=== PATIENT | female | born 1975 | race Caucasian/White ===

== ENCOUNTER 2019-07-07 19:20 | Observation (INO) | payer OTHER ==
[2019-07-07] MEDS ORDERED: SODIUM CHLORIDE 0.9% 1,000 ML IV STA ×2 (19:43)
[2019-07-07] MEDS ORDERED: diphenhydrAMINE 50 MG/ML 1 ML VIAL IVP STA ×2 (19:43→21:45)
[2019-07-07] MEDS ORDERED: METOCLOPRAMIDE 5 MG/ML 2 ML VIAL IVP STA (19:43)
[2019-07-07] MEDS ORDERED: CAFFEINE-SODIUM BENZOATE 500 MG in SODIUM CHLORIDE 0.9% 1,000 ML IVPB ONE (20:00)
--- NOTE | 2019-07-07 20:28 | ED ---
Headache HPI - General Source: RN notes reviewed, old records reviewed Mode of arrival: ambulatory Limitations: no limitations <Doris Drake - Last Filed: 07/07/19 20:47> <Addi Amado - Last Filed: 07/07/19 22:47> - General Chief Complaint: Headache Stated Complaint: Migraine Time Seen by Provider: 07/07/19 19:28 - History of Present Illness Initial Comments: Patient 44 year-old female presents emergency pharmacy and treatment of headache, nausea vomiting, and photophobia 3 days. She states it is a gradual headache. She reports the headache seems to worse with positions and sitting up breath on laying down. Patient states that she's had history of migraines but none related to position in the past. Patient reports that she's had a cyst on her brain that was removed. Patient states that she's had no fevers or chills. Denies any significant chest pain or back pain or shortness of breath. 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 She's been taking Excedrin Migraine. (Doris Drake) - Related Data Allergies Allergy/AdvReac Type Severity Reaction Status Date / Time ciprofloxacin [From Cipro] Allergy Swelling Verified 07/07/19 19:25 Review of Systems ROS Other: All systems not noted in ROS Statement are negative. <Doris Drake - Last Filed: 07/07/19 20:47> ROS Other: All systems not noted in ROS Statement are negative. <Addi Amado - Last Filed: 07/07/19 22:47> ROS Statement: Those systems with pertinent positive or pertinent negative responses have been documented in the HPI. Past Medical History Additional Past Medical History / Comment(s): migraines History of Any Multi-Drug Resistant Organisms: None Reported Past Surgical History: Adenoidectomy, Section, Joint Replacement, Tonsillectomy Additional Past Surgical History / Comment(s): lt knee, brain cyst removed Past Psychological History: Anxiety, Depression Smoking Status: Never smoker Past Alcohol Use History: Occasional Past Drug Use History: Marijuana <Doris Drake - Last Filed: 07/07/19 20:47> General Exam Limitations: no limitations General appearance: alert, in no apparent distress Head exam: Present: atraumatic, normocephalic, normal inspection Eye exam: Present: normal appearance, PERRL, EOMI. Absent: scleral icterus, conjunctival injection, periorbital swelling ENT exam: Present: normal exam, mucous membranes moist Neck exam: Present: normal inspection. Absent: tenderness, meningismus, lymphadenopathy Respiratory exam: Present: normal lung sounds bilaterally. Absent: respiratory distress, wheezes, rales, rhonchi, stridor Cardiovascular Exam: Present: regular rate, normal rhythm, normal heart sounds. Absent: systolic murmur, diastolic murmur, rubs, gallop, clicks GI/Abdominal exam: Present: soft, normal bowel sounds. Absent: distended, tenderness, guarding, rebound, rigid Extremities exam: Present: normal inspection, full ROM, normal capillary refill. Absent: tenderness, pedal edema, joint swelling, calf tenderness Back exam: Present: normal inspection Neurological exam: Present: alert, oriented X3, CN II-XII intact Expanded Patient oriented to: Present: person, place, time Speech: Present: fluid speech Cranial nerves: EOM's Intact: Normal Cerebellar function: Finger to Nose: Normal Upper motor neuron: Pronator Drift: Normal Sensory exam: Upper Extremity Light Touch: Normal, Lower Extremity Light Touch: Normal Psychiatric exam: Present: normal affect, normal mood Skin exam: Present: warm <Doris Drake - Last Filed: 07/07/19 20:47> - General Exam Comments Initial Comments: 44-year-old female. Alert and oriented. She does appear in moderate discomfort, and has had some episodes of vomiting. (Doris Drake) Course <Doris Drake - Last Filed: 07/07/19 20:47> <Addi Amado - Last Filed: 07/07/19 22:47> Vital Signs 07/07/19 07/07/19 19:21 22:12 Temperature 98.2 F Pulse Rate 91 70 Respiratory 20 16 Rate Blood Pressure 147/94 145/90 O2 Sat by Pulse 97 Oximetry - Reevaluation(s) Reevaluation #1: 07/07/19 20:36 Patient case discussed with Dr. Amado will take care of the Patient pending CT at this time. (Doris Drake) 07/07/19 21:59 Patient reevaluated and resting comfortably in bed. Patient updated on results. Patient states only mild improvement of symptoms. Patient states she does feel somewhat anxious and nauseated. Further medication has been ordered and patient will be reevaluated. (Addi Amado) Medical Decision Making - Lab Data Result diagrams: 07/07/19 20:30 07/07/19 20:30 - Radiology Data Radiology results: image reviewed (Computed tomography scan of the brain shows no acute abnormality. Post surgical changes.) <Addi Amado - Last Filed: 07/07/19 22:47> - Medical Decision Making Patient again reevaluated. Patient states nausea has improved. Patient states discomfort is only mildly improved. Case discussed with Dr. Del Valle, who will admit for hospital call. (Addi Amado) - Lab Data Lab Results 07/07/19 07/07/19 07/07/19 Range/Units 20:30 20:30 20:30 WBC 11.8 H (3.8-10.6) k/uL RBC 4.68 (3.80-5.40) m/uL Hgb 13.5 (11.4-16.0) gm/dL Hct 41.8 (34.0-46.0) % MCV 89.2 (80.0-100.0) fL MCH 28.9 (25.0-35.0) pg MCHC 32.4 (31.0-37.0) g/dL RDW 13.4 (11.5-15.5) % Plt Count 316 (150-450) k/uL Neutrophils % 55 % Lymphocytes % 32 % Monocytes % 5 % Eosinophils % 6 % Basophils % 1 % Neutrophils # 6.4 (1.3-7.7) k/uL Lymphocytes # 3.8 (1.0-4.8) k/uL Monocytes # 0.6 (0-1.0) k/uL Eosinophils # 0.7 (0-0.7) k/uL Basophils # 0.2 (0-0.2) k/uL PT 9.8 (9.0-12.0) sec INR 0.9 (<1.2) APTT 23.3 (22.0-30.0) sec Sodium 141 (137-145) mmol/L Potassium 4.2 (3.5-5.1) mmol/L Chloride 107 (98-107) mmol/L Carbon Dioxide 26 (22-30) mmol/L Anion Gap 8 mmol/L BUN 13 (7-17) mg/dL Creatinine 0.68 (0.52-1.04) mg/dL Est GFR (CKD-EPI)AfAm >90 (>60 ml/min/1.73 sqM) Est GFR (CKD-EPI)NonAf >90 (>60 ml/min/1.73 sqM) Glucose 105 H (74-99) mg/dL Calcium 9.7 (8.4-10.2) mg/dL Total Bilirubin 0.3 (0.2-1.3) mg/dL AST 27 (14-36) U/L ALT 38 (9-52) U/L Alkaline Phosphatase 57 (38-126) U/L Total Protein 7.2 (6.3-8.2) g/dL Albumin 4.2 (3.5-5.0) g/dL Disposition <Doris Drake - Last Filed: 07/07/19 20:47> Is patient prescribed a controlled substance at d/c from ED?: No Decision Time: 22:47 <Addi Amado - Last Filed: 07/07/19 22:47> Clinical Impression: Headache Disposition: ADMITTED IP TO THIS HOSP Referrals: Amirah Gallagher DO [Primary Care Provider] - 1-2 days
[2019-07-07 20:49] LABS: Basophils # (A) 0.2 k/uL (0-0.2); Basophils % (A) 1 %; Eosinophils # (A) 0.7 k/uL (0-0.7); Eosinophils % (A) 6 %; HCT 41.8 % (34.0-46.0); HGB 13.5 gm/dL (11.4-16.0); Lymphocytes # (A) 3.8 k/uL (1.0-4.8); Lymphocytes % (A) 32 %; MCH 28.9 pg (25.0-35.0); MCHC 32.4 g/dL (31.0-37.0); MCV 89.2 fL (80.0-100.0); Mean Platelet Volume 6.6; Monocytes # (A) 0.6 k/uL (0-1.0); Monocytes % (A) 5 %; Neutrophils # (A) 6.4 k/uL (1.3-7.7); Neutrophils % (A) 55 %; Platelet Count 316 k/uL (150-450); RBC 4.68 m/uL (3.80-5.40); RDW 13.4 % (11.5-15.5); WBC 11.8 k/uL (3.8-10.6)
[2019-07-07 21:03] LABS: ALT 38 U/L (9-52); AST 27 U/L (14-36); African American GFR (CKD) >90 (>60 ml/min/1.73 sqM); Albumin 4.2 g/dL (3.5-5.0); Alkaline Phosphatase 57 U/L (38-126); Anion Gap 8 mmol/L; Blood Urea Nitrogen 13 mg/dL (7-17); Calcium 9.7 mg/dL (8.4-10.2); Carbon Dioxide 26 mmol/L (22-30); Chloride 107 mmol/L (98-107); Glucose 105 mg/dL (74-99); Non-African American GFR(CKD) >90 (>60 ml/min/1.73 sqM); Potassium 4.2 mmol/L (3.5-5.1); Sodium 141 mmol/L (137-145); Total Bilirubin 0.3 mg/dL (0.2-1.3); Total Protein 7.2 g/dL (6.3-8.2)
[2019-07-07 21:05] LABS: INR 0.9 (<1.2); Partial Thromboplastin Time 23.3 sec (22.0-30.0); Prothrombin Time 9.8 sec (9.0-12.0)
--- NOTE | 2019-07-07 21:08 | CT ---
EXAMINATION TYPE: CT brain wo con DATE OF EXAM: 07/07/2019 COMPARISON: None HISTORY: migrane recent cyst removed CT DLP: 1091 mGycm. Automated Exposure Control for Dose Reduction was Utilized. TECHNIQUE: CT scan of the head is performed without contrast. FINDINGS: Ventricles have normal size. There is no mass effect nor midline shift. There is no sign of intracranial hemorrhage. There is right parietal craniotomy defect. There is some minimal cortical h ypodensity in the right posterior frontal lobe that measures 1.6 cm. IMPRESSION: Previous craniotomy. Small area of encephalomalacia in the right posterior frontal lobe cortex. No ac anum intracranial abnormality.
[2019-07-07] MEDS ORDERED: ONDANSETRON 4 MG/2 ML VIAL IVP STA (21:45)
[2019-07-07] MEDS ORDERED: HYDROmorphone 1 MG/ML 1 ML SYRINGE IVP STA (21:45)
[2019-07-07] MEDS ORDERED: NALOXONE 0.4 MG/ML 1 ML VIAL IV PRN (22:47)
[2019-07-07] MEDS ORDERED: HYDROmorphone 0.5 MG/0.5 ML SYRINGE IVP PRN (22:47)
[2019-07-07] MEDS ORDERED: ONDANSETRON 4 MG/2 ML VIAL IVP PRN (22:47)
[2019-07-07] MEDS ORDERED: methylPREDNISolone SOD SUCCI 125 MG/2 ML VIAL IV STA (22:49)
[2019-07-07] MEDS: KETOROLAC 30 MG/ML 1 ML VIAL IVP PRN (23:43)
[2019-07-08] MEDS ORDERED: ONDANSETRON 4 MG/2 ML VIAL IVP PRN (00:09)
[2019-07-08] MEDS: HYDROmorphone 1 MG/ML 1 ML SYRINGE IVP PRN ×2 (00:33→04:42)
[2019-07-08] MEDS: TRIMETHOBENZAMIDE 100 MG/ML 2 ML VIAL IM PRN ×2 (00:33→14:41)
[2019-07-08] MEDS: SODIUM CHLORIDE 0.9% 1,000 ML IV SCH ×2 (00:34→12:46)
[2019-07-08] MEDS: KETOROLAC 30 MG/ML 1 ML VIAL IVP PRN (07:36)
[2019-07-08] MEDS ORDERED: ASPIRIN-ACET-CAFF 250-250-65MG 1 EACH TAB PO PRN (13:58)
[2019-07-08] MEDS ORDERED: hydrOXYzine HCL 25 MG TAB PO PRN (13:58)
[2019-07-08] MEDS ORDERED: MAGNESIUM SULFATE-D5W PMX 1 GM in DEXTROSE/WATER 1 100ML.BAG IVPB ONE (14:18)
[2019-07-08] MEDS ORDERED: KETOROLAC 30 MG/ML 1 ML VIAL IVP STA (14:18)
[2019-07-08] MEDS ORDERED: DEXAMETHASONE SOD PHOSPHATE 4 MG/ML 1 ML VIAL IV STA (14:21)
--- NOTE | 2019-07-08 14:40 | P.CNNES ---
History of Present Illness Consult date: 07/08/19 Reason for Consult: Cephalgia Chief complaint: Headache, nausea, vomiting and photophobia 3 days History of Present Illness: HISTORY OF PRESENT ILLNESS: Thank you for allowing me to evaluate Ms. Mi Wells. Ms. Wells is a 44-year-old woman with past medical history of Migraines x 35 years, colloid cyst removal about 14 years ago, anxiety, depression, who presents to [facility] for headache, nausea, vomiting, photophobia 3 days. patient states that she has bad migraines maybe once every 3 months, she did not come to the hospital last time. Patient does not have a neurologist. She is taking lamictal at this time, which is a low dose. Patient denies tinnitus, states that her headache gets worse when she sits up. Patient also endorses mild blurry vision, which patient has always had with her migraines. Her vision improves once her migraine improves. Patient also states that she has gained ~40 pounds in the last year even though she doesn't have much of an appetite. Yest erday, her headache was about 7/10 pain, at the time of evaluation, patient having 4-5/10 pain. PAST MEDICAL HISTORY: Migraines, anxiety, depression PAST SURGICAL HISTORY: Adenoidectomy, , tonsillectomy, left knee surgery, brain cyst removed HOME MEDICATIONS: Vitamin D, lamotrigine 50 mg daily at bedtime, Seroquel, biotin, hydroxyzine, Cymbalta, Adderall, clonazepam, Abilify, Excedrin Migraine ALLERGIES: Ciprofloxacin SOCIAL HISTORY: Never smoker. Occasional alcohol drinker. Endorses marijuana use REVIEW OF SYSTEMS: The 14 systems are reviewed and no additional points are identified compared to the review of systems documented history and physical PHYSICAL EXAMINATION: VITAL SIGNS: T 98.0 HR 97 RR 20 BP 163/94 O2 sat 95% on RA GEN.: NAD, pleasant and cooperative HEENT: NCAT, sclera without icterus NECK: Supple, no carotid bruit SKIN AND EXTREMITIES: Warm to touch, no edema NEURO: MENTAL STATUS: Patient alert and oriented to self, place, time. Able to name the current president. Speech fluent, able to name and repeat, following all commands readily. No right and left disorientation, neglect. CRANIAL NERVES II THROUGH XII: II: Pupils are equal and reactive to light symmetrically. No afferent pupillary defect. Visual menjivar are intact. III, IV, : No ptosis. Extraocular movements full. No nystagmus. V: Facial sensation intact from V1-3. VII. No clear facial asymmetry. VIII: Hearing intact to finger rub bilaterally. IX, X: Symmetric palate elevation. XI: Shoulder shrug intact. XII: Tongue midline without fasciculation or atrophy. MOTOR: Normal bulk/tone. No pronator drift or tremor. Strength is 5/5 throughout all 4 extremities. SENSORY: Intact to light touch in all 4 extremities. Romberg is negative. REFLEXES: 2+ throughout. Toes are downgoing. COORDINATION: Finger to nose and heel to singleton intact. No dysmetria. Rapid alternating movements with good speed and accuracy. GAIT: Narrow-based and stable. Able to toe/heel/tandem walk DIAGNOSTIC TESTING: LABORATORY: WBC 11.8 hemoglobin 13.5 platelets 316 INR 0.9 sodium 141 potassium 4.2 chloride 107 bicarb 26 BUN 13 creatinine 0.68 glucose 105 AST 27 ALT 38 alk phos 57 IMAGING: CT head without contrast 07/07/2019: Previous craniotomy. Small area of encephalomalacia in the right posterior frontal lobe cortex. No acute intracranial abnormality. ASSESSMENT: 44-year-old woman with past medical history of Migraines x 35 years, colloid cys t removal about 14 years ago, anxiety, depression, who presents to [facility] for headache, nausea, vomiting, photophobia 3 days. patient with hx of colloid cyst and recent significant weight gain of 40 pounds. patient is on lamictal, which can be used for headache, but not at adequate dose. Patient states she took depakote for about 3 months per her psychiatrist's recommendation for her mood disorder, but it didn't help her much with her headaches at the time. RECOMMENDATIONS: 1. MRI brain w/o contrast 2. Migraine cocktail: toradol, Mg IV, dexamethasone 4mg IVx 1 3. Will start topamax to help with headache and also weight loss. Start at 25mg BID for 1 week, then 25mg qam and 50mg qhs for 1 week, then 50mg BID for 1 week, then 50mg qam 75mg qhs for 1 week, then 75mg BID 4. Consider increasing lamictal dose as outpatient 5. Magnesium Oxide 400mg BID, vitamin b2 400mg qday for migraine prophylaxis 6. Patient can be discharged home after MRI brain. 7. Patient needs outpatient Neurology appointment within 1-2 weeks of discharge Past Medical History Additional Past Medical History / Comment(s): migraines History of Any Multi-Drug Resistant Organisms: None Reported Past Surgical History: Adenoidectomy, Section, Joint Replacement, Tonsillectomy Additional Past Surgical History / Comment(s): lt knee, brain cyst removed Past Anesthesia/Blood Transfusion Reactions: No Reported Reaction Past Psychological History: Anxiety, Depression Smoking Status: Never smoker Past Alcohol Use History: Occasional Past Drug Use History: Marijuana - Past Family History Father Family Medical History: Cancer Additional Family Medical History / Comment(s): geoblastoma Medications and Allergies Home Medications Medication Instructions Recorded Confirmed Type ARIPiprazole [Abilify] 10 mg PO HS 07/07/19 07/07/19 History Aspirin/Acetaminophen/Caffeine 2 tab PO DAILY PRN 07/07/19 07/07/19 History [Excedrin Migraine Caplet] Biotin 5,000 mcg PO HS 07/07/19 07/07/19 History Cholecalciferol [Vitamin D3 (25 5,000 unit PO HS 07/07/19 07/07/19 History Mcg = 1000 Iu)] DULoxetine HCL [Cymbalta] 60 mg PO HS 07/07/19 07/07/19 History Dextroamphetamine/Amphetamine 30 mg PO QAM 07/07/19 07/07/19 History [Adderall Xr] Dextroamphetamine/Amphetamine 10 mg PO DAILY@1300 07/07/19 07/07/19 History [Adderall] QUEtiapine [SEROquel] 200 mg PO HS 07/07/19 07/07/19 History clonazePAM [KlonoPIN] 0.5 mg PO HS 07/07/19 07/07/19 History hydrOXYzine HCL [Atarax] 25 mg PO HS PRN 07/07/19 07/07/19 History lamoTRIgine [LaMICtal] 50 mg PO HS 07/07/19 07/07/19 History Topiramate [Topamax] 25 mg PO BID #30 tab 07/08/19 Rx Allergies Allergy/AdvReac Type Severity Reaction Status Date / Time ciprofloxacin [From Cipro] Allergy Swelling Verified 07/07/19 23:02 Physical Examination - Vital Signs Vital Signs: Vital Signs Temp Pulse Pulse Resp BP BP Pulse Ox 07/08/19 05:00 98.0 F 97 20 163/94 95 07/07/19 23:30 98.0 F 84 18 168/93 94 L 07/07/19 22:12 70 16 145/90 07/07/19 19:21 98.2 F 91 20 147/94 97 Intake and Output 07/07/19 07/08/19 07/08/19 22:59 06:59 14:59 Intake Total 500 200 Balance 500 200 Intake: Oral 500 200 Other: Voiding Method Toilet # Voids 2 Weight 105.551 kg 105.551 kg Results - Laboratory Findings CBC and BMP: 07/07/19 20:30 07/07/19 20:30 Abnormal Lab Findings: Abnormal Labs 07/07/19 07/07/19 20:30 20:30 WBC 11.8 H Glucose 105 H
[2019-07-08] MEDS ORDERED: LORazepam 2 MG/ML INJ IV PRN (14:41)
--- NOTE | 2019-07-08 16:05 | P.DS ---
Providers Date of admission: 07/07/19 22:48 Attending physician: Neal Arroyo MD Consults: 07/07/19 22:48 Consult Physician Routine Consulting Provider: Araceli Monge Consult Reason/Comments: Cephalgia Do you want consulting provider notified?: Yes Primary care physician: Amirah Gallagher [facility] Course: Please refer to my HPI Plan - Discharge Summary Discharge Rx Participant: No New Discharge Prescriptions: New Topiramate [Topamax] 25 mg PO BID #30 tab Magnesium Oxide [Mag-Ox] 400 mg PO BID #60 tablet Riboflavin 400 mg PO BID #60 tablet No Action Cholecalciferol [Vitamin D3 (25 Mcg = 1000 Iu)] 5,000 unit PO HS lamoTRIgine [LaMICtal] 50 mg PO HS QUEtiapine [SEROquel] 200 mg PO HS Biotin 5,000 mcg PO HS hydrOXYzine HCL [Atarax] 25 mg PO HS PRN PRN Reason: Insomnia DULoxetine HCL [Cymbalta] 60 mg PO HS Dextroamphetamine/Amphetamine [Adderall] 10 mg PO DAILY@1300 clonazePAM [KlonoPIN] 0.5 mg PO HS Dextroamphetamine/Amphetamine [Adderall Xr] 30 mg PO QAM ARIPiprazole [Abilify] 10 mg PO HS Aspirin/Acetaminophen/Caffeine [Excedrin Migraine Caplet] 2 tab PO DAILY PRN PRN Reason: Migraine Headache Discharge Medication List ARIPiprazole [Abilify] 10 mg PO HS 07/07/19 [History] Aspirin/Acetaminophen/Caffeine [Excedrin Migraine Caplet] 2 tab PO DAILY PRN 07/07/19 [History] Biotin 5,000 mcg PO HS 07/07/19 [History] Cholecalciferol [Vitamin D3 (25 Mcg = 1000 Iu)] 5,000 unit PO HS 07/07/19 [History] DULoxetine HCL [Cymbalta] 60 mg PO HS 07/07/19 [History] Dextroamphetamine/Amphetamine [Adderall Xr] 30 mg PO QAM 07/07/19 [History] Dextroamphetamine/Amphetamine [Adderall] 10 mg PO DAILY@1300 07/07/19 [History] QUEtiapine [SEROquel] 200 mg PO HS 07/07/19 [History] clonazePAM [KlonoPIN] 0.5 mg PO HS 07/07/19 [History] hydrOXYzine HCL [Atarax] 25 mg PO HS PRN 07/07/19 [History] lamoTRIgine [LaMICtal] 50 mg PO HS 07/07/19 [History] Magnesium Oxide [Mag-Ox] 400 mg PO BID #60 tablet 07/08/19 [Rx] Riboflavin 400 mg PO BID #60 tablet 07/08/19 [Rx] Topiramate [Topamax] 25 mg PO BID #30 tab 07/08/19 [Rx] Follow up Appointment(s)/Referral(s): Amirah Gallagher DO [Primary Care Provider] - 3 Days Jean Paul Hernandez DO [STAFF PHYSICIAN] - 1 Week Activity/Diet/Wound Care/Special Instructions: Topomax 25mg BID for 1 week, then 25mg qam and 50mg qhs for 1 week, then 50mg BID for 1 week, then 50mg qam 75mg qhs for 1 week, then 75mg BID Discharge Disposition: HOME SELF-CARE
--- NOTE | 2019-07-08 16:05 | P.HPIM ---
History of Present Illness Patient is a pleasant 44-year-old the female with history of migraines came in with complains of severe headache along with nausea vomiting mild photophobia going on for about 3 days. Patient had a colloid cyst removed 14 years ago because of which she and neurology is recommending an MRI. Neurologist evaluated the patient and the patient was recommended to be started on Topamax and if MRI doesn't show any significant abnormality patient will be discharged today. Patient did gain 40 pounds in last year weight loss will help with her migraine as well. Magnesium oxide and B2 are recommended by neurology which will be prescribed and if MRI is negative patient will be discharged today. Patient the yesterday had severe 7/10 pain right now she has 4-5/10 pain Review of Systems REVIEW OF SYSTEMS: CONSTITUTIONAL: No fever, no malaise, no fatigue. HEENT: No recent visual problems or hearing problems. Denied any sore throat. CARDIOVASCULAR: No chest pain, orthopnea, PND, no palpitations, no syncope. PULMONARY: No shortness of breath, no cough, no hemoptysis. GASTROINTESTINAL: No diarrhea, no nausea, no vomiting, no abdominal pain. NEUROLOGICAL:no weakness, no numbness. HEMATOLOGICAL: Denies any bleeding or petechiae. GENITOURINARY: Denies any burning micturition, frequency, or urgency. MUSCULOSKELETAL/RHEUMATOLOGICAL: Denies any joint pain, swelling, or any muscle pain. ENDOCRINE: Denies any polyuria or polydipsia. The rest of the 14-point review of systems is negative. Past Medical History Additional Past Medical History / Comment(s): migraines History of Any Multi-Drug Resistant Organisms: None Reported Past Surgical History: Adenoidectomy, Section, Joint Replacement, Tonsillectomy Additional Past Surgical History / Comment(s): lt knee, brain cyst removed Past Anesthesia/Blood Transfusion Reactions: No Reported Reaction Past Psychological History: Anxiety, Depression Smoking Status: Never smoker Past Alcohol Use History: Occasional Past Drug Use History: Marijuana - Past Family History Father Family Medical History: Cancer Additional Family Medical History / Comment(s): geoblastoma Medications and Allergies Home Medications Medication Instructions Recorded Confirmed Type ARIPiprazole [Abilify] 10 mg PO HS 07/07/19 07/07/19 History Aspirin/Acetaminophen/Caffeine 2 tab PO DAILY PRN 07/07/19 07/07/19 History [Excedrin Migraine Caplet] Biotin 5,000 mcg PO HS 07/07/19 07/07/19 History Cholecalciferol [Vitamin D3 (25 5,000 unit PO HS 07/07/19 07/07/19 History Mcg = 1000 Iu)] DULoxetine HCL [Cymbalta] 60 mg PO HS 07/07/19 07/07/19 History Dextroamphetamine/Amphetamine 30 mg PO QAM 07/07/19 07/07/19 History [Adderall Xr] Dextroamphetamine/Amphetamine 10 mg PO DAILY@1300 07/07/19 07/07/19 History [Adderall] QUEtiapine [SEROquel] 200 mg PO HS 07/07/19 07/07/19 History clonazePAM [KlonoPIN] 0.5 mg PO HS 07/07/19 07/07/19 History hydrOXYzine HCL [Atarax] 25 mg PO HS PRN 07/07/19 07/07/19 History lamoTRIgine [LaMICtal] 50 mg PO HS 07/07/19 07/07/19 History Magnesium Oxide [Mag-Ox] 400 mg PO BID #60 tablet 07/08/19 Rx Topiramate [Topamax] 25 mg PO BID #30 tab 07/08/19 Rx Allergies Allergy/AdvReac Type Severity Reaction Status Date / Time ciprofloxacin [From Cipro] Allergy Swelling Verified 07/07/19 23:02 Physical Exam Vitals: Vital Signs Temp Pulse Pulse Resp BP BP Pulse Ox 07/08/19 14:32 98.4 F 87 16 128/86 96 07/08/19 05:00 98.0 F 97 20 163/94 95 07/07/19 23:30 98.0 F 84 18 168/93 94 L 07/07/19 22:12 70 16 145/90 07/07/19 19:21 98.2 F 91 20 147/94 97 Intake and Output 07/08/19 07/08/19 07/08/19 06:59 14:59 22:59 Intake Total 500 200 Balance 500 200 Intake: Oral 500 200 Other: Voiding Method Toilet # Voids 2 3 Weight 105.551 kg PHYSICAL EXAMINATION: GENERAL: The patient is alert and oriented x3, not in any acute distress. Well developed, well nourished. HEENT: Pupils are round and equally reacting to light. EOMI. No scleral icterus. No conjunctival pallor. Normocephalic, atraumatic. No pharyngeal erythema. No thyromegaly. CARDIOVASCULAR: S1 and S2 present. No murmurs, rubs, or gallops. PULMONARY: Chest is clear to auscultation, no wheezing or crackles. ABDOMEN: Soft, nontender, nondistended, normoactive bowel sounds. No palpable organomegaly. MUSCULOSKELETAL: No joint swelling or deformity. EXTREMITIES: No cyanosis, clubbing, or pedal edema. NEUROLOGICAL: Gross neurological examination did not reveal any focal deficits. SKIN: No rashes. Results CBC & Chem 7: 07/07/19 20:30 07/07/19 20:30 Labs: Abnormal Lab Results - Last 24 Hours (Table) 07/07/19 07/07/19 Range/Units 20:30 20:30 WBC 11.8 H (3.8-10.6) k/uL Glucose 105 H (74-99) mg/dL Thrombosis Risk Factor Assmnt - Choose All That Apply Any of the Below Risk Factors Present?: Yes Each Factor Represents 1 point: Age 41-60 years, Obesity (BMI >25) Other Risk Factors: No Other congenital or acquired thrombophilia - If yes, enter type in comment: No Thrombosis Risk Factor Assessment Total Risk Factor Score: 2 Thrombosis Risk Factor Assessment Level: Low Risk Assessment and Plan Plan: -Headache possibly secondary to migraine attack MRI of the brain because of her previous colloid cyst and if that is negative patient will be discharged on Topamax and follow up with neurology as an outpatient and patient will be prescribed magnesium as well as be to as migraine prophylaxis limitation be increased as an outpatient patient will continue her Fioricet for headache. -Depression: Patient will continue her home medications -Obesity and recent weight gain: Counseling was provided
--- NOTE | 2019-07-08 16:57 | MR ---
MR brain without contrast HISTORY: Headaches, history of brain cyst Multiplanar multisequence imaging through the brain and correlated to CT brain 07/07/2019 Patient shows convexity craniotomy change with partial resection of the corpus callosum anteriorly as noted on patient's CT. Calcifications are noted the cerebellopontine angle on the right on the patie nt's CT are not appreciated on MRI. Some pericallosal hyperintensity present on inversion recovery T2 -weighted sequences. There is no evident restricted diffusion. Orbits show symmetric appearance. Cer ebellopontine angles show symmetric appearance. The basilar artery shows a somewhat irregular appearance, there is a halo of peripheral decreased sig nal seen on axial image #8 of both inversion recovery and T2-weighted sequences which could possibly represent artifact as this is not seen with certainty on the coronal T2 data set. Some inflammatory c hange present in the ethmoid air cells, mucosal disease in the maxillary sinuses. There is no hemorrh age or hydrocephalus. IMPRESSION: Postop, postprocedural changes with resulting gliosis. Findings of the basilar artery as described, alternate imaging may be of benefit as indicated.
[2019-07-08] MEDS: MAGNESIUM OXIDE 400 MG TAB PO SCH (20:35)
[2019-07-08] MEDS: TOPIRAMATE 25 MG TAB PO SCH (20:37)
[2019-07-08] MEDS ORDERED: NON FORMULARY DRUG (Biotin [Biotin] 5,000 MCG) PO SCH (21:00)
[2019-07-08] MEDS ORDERED: clonazePAM 0.5 MG TAB PO SCH (21:00)
[2019-07-08] MEDS ORDERED: DULoxetine HCL 60 MG CAPSULE.DR PO SCH (21:00)
[2019-07-08] MEDS ORDERED: lamoTRIgine 25 MG TAB PO SCH (21:00)
[2019-07-08] MEDS ORDERED: ARIPiprazole 10 MG TAB PO SCH (21:00)
[2019-07-08] MEDS ORDERED: QUEtiapine 200 MG TAB PO SCH (21:00)
[2019-07-09] MEDS: SODIUM CHLORIDE 0.9% 1,000 ML IV SCH (02:03)
[2019-07-09] MEDS: TOPIRAMATE 25 MG TAB PO SCH (07:51)
[2019-07-09] MEDS: MAGNESIUM OXIDE 400 MG TAB PO SCH (07:51)
[2019-07-09] MEDS ORDERED: Dextroamphetamine/Amphetamine [Adderall Xr] PO SCH (09:00)
[2019-07-09] MEDS ORDERED: Dextroamphetamine/Amphetamine [Adderall] PO SCH (13:00)
[2019-07-09 15:00] VITALS: BP 145/74; PULSE 100; RESP 16; TEMP 98.5
--- NOTE | 2019-07-09 15:47 | P.DS ---
Providers Date of admission: 07/07/19 22:48 Attending physician: Neal Arroyo MD Consults: 07/07/19 22:48 Consult Physician Routine Consulting Provider: Araceli Monge Consult Reason/Comments: Cephalgia Do you want consulting provider notified?: Yes Primary care physician: Amirah Gallagher [facility] Course: patient ended up staying in the hospital patient is feeling better today without any headache patient will be discharged today no changes in medications are being made.was treated for migraine PHYSICAL EXAMINATION: GENERAL: The patient is alert and oriented x3, not in any acute distress. Well developed, well nourished. HEENT: Pupils are round and equally reacting to light. EOMI. No scleral icterus. No conjunctival pallor. Normocephalic, atraumatic. No pharyngeal erythema. No thyromegaly. CARDIOVASCULAR: S1 and S2 present. No murmurs, rubs, or gallops. PULMONARY: Chest is clear to auscultation, no wheezing or crackles. ABDOMEN: Soft, nontender, nondistended, normoactive bowel sounds. No palpable organomegaly. MUSCULOSKELETAL: No joint swelling or deformity. EXTREMITIES: No cyanosis, clubbing, or pedal edema. NEUROLOGICAL: Gross neurological examination did not reveal any focal deficits. SKIN: No rashes. For rest of the hospitalization courseanother medical problems that were addressed please refer to my HPI from yesterday Plan - Discharge Summary Discharge Rx Participant: No New Discharge Prescriptions: New Topiramate [Topamax] 25 mg PO BID #30 tab Magnesium Oxide [Mag-Ox] 400 mg PO BID #60 tablet Riboflavin 400 mg PO BID #60 tablet No Action Cholecalciferol [Vitamin D3 (25 Mcg = 1000 Iu)] 5,000 unit PO HS lamoTRIgine [LaMICtal] 50 mg PO HS QUEtiapine [SEROquel] 200 mg PO HS Biotin 5,000 mcg PO HS hydrOXYzine HCL [Atarax] 25 mg PO HS PRN PRN Reason: Insomnia DULoxetine HCL [Cymbalta] 60 mg PO HS Dextroamphetamine/Amphetamine [Adderall] 10 mg PO DAILY@1300 clonazePAM [KlonoPIN] 0.5 mg PO HS Dextroamphetamine/Amphetamine [Adderall Xr] 30 mg PO QAM ARIPiprazole [Abilify] 10 mg PO HS Aspirin/Acetaminophen/Caffeine [Excedrin Migraine Caplet] 2 tab PO DAILY PRN PRN Reason: Migraine Headache Discharge Medication List ARIPiprazole [Abilify] 10 mg PO HS 07/07/19 [History] Aspirin/Acetaminophen/Caffeine [Excedrin Migraine Caplet] 2 tab PO DAILY PRN 07/07/19 [History] Biotin 5,000 mcg PO HS 07/07/19 [History] Cholecalciferol [Vitamin D3 (25 Mcg = 1000 Iu)] 5,000 unit PO HS 07/07/19 [History] DULoxetine HCL [Cymbalta] 60 mg PO HS 07/07/19 [History] Dextroamphetamine/Amphetamine [Adderall Xr] 30 mg PO QAM 07/07/19 [History] Dextroamphetamine/Amphetamine [Adderall] 10 mg PO DAILY@1300 07/07/19 [History] QUEtiapine [SEROquel] 200 mg PO HS 07/07/19 [History] clonazePAM [KlonoPIN] 0.5 mg PO HS 07/07/19 [History] hydrOXYzine HCL [Atarax] 25 mg PO HS PRN 07/07/19 [History] lamoTRIgine [LaMICtal] 50 mg PO HS 07/07/19 [History] Magnesium Oxide [Mag-Ox] 400 mg PO BID #60 tablet 07/08/19 [Rx] Riboflavin 400 mg PO BID #60 tablet 07/08/19 [Rx] Topiramate [Topamax] 25 mg PO BID #30 tab 07/08/19 [Rx] Follow up Appointment(s)/Referral(s): Amirah Gallagher DO [Primary Care Provider] - 3 Days Jean Paul Hernandez DO [STAFF PHYSICIAN] - 1 Week Activity/Diet/Wound Care/Special Instructions: Topomax 25mg BID for 1 week, then 25mg qam and 50mg qhs for 1 week, then 50mg BID for 1 week, then 50mg qam 75mg qhs for 1 week, then 75mg BID Discharge Disposition: HOME SELF-CARE
== END 2019-07-09 15:48 | disposition home or self-care (01) ==
LOC: EC 19:20 → 4MS4W 22:48
PROVIDERS: ADMIT Internal Medicine; ATTEND Internal Medicine
DX: G43.909 Migraine, unspecified, not intractable, without status migrainosus (principal); E66.9 Obesity, unspecified; Z71.3 Dietary counseling and surveillance; F32.9 Major depressive disorder, single episode, unspecified; F41.9 Anxiety disorder, unspecified; Z79.899 Other long term (current) drug therapy; Z68.38 Body mass index [BMI] 38.0-38.9, adult; Z96.652 Presence of left artificial knee joint
CPT/HCPCS: 96376 ×2; 96361 ×4; 96367; 96372; 96375 ×3; 96365; 99285; 36415; 80053; 85025; 85610; 85730; 70450; 70551; G0378 ×3; J2060; J1200; J1100; J2765; J2930; J3250; J2405; J1885 ×2; J1170 ×3; J3475

== ENCOUNTER 2022-04-13 13:28 | Emergency (ER) | payer BC, OTHER ==
[2022-04-13 13:33] VITALS: BP 146/87; PULSE 98; RESP 18
--- NOTE | 2022-04-13 13:56 | ED ---
Extremity Problem HPI - General Chief complaint: Extremity Problem,Nontraumatic Stated complaint: rt leg pain Time Seen by Provider: 04/13/22 13:46 Source: patient, RN notes reviewed, old records reviewed Mode of arrival: ambulatory Limitations: no limitations - History of Present Illness Initial comments: Well-appearing 47 -year-old female that presents to the emergency room with right calf pain. Patient states she woke up in the middle of the night with sharp cramping pain in right calf similar to a charley horse that was so severe it made her want to throw up. She continues to have some discomfort. She states that she did call her daughter who is at orthopedic [facility] who recommended she come in to rule out DVT. There is no swelling. MD Complaint: extremity pain -: hour(s) Location: right, lower extremity History of Same: No Severity scale (1-10): 4 Quality: aching Consistency: constant Associated Symptoms: denies other symptoms - Related Data Home Medications Medication Instructions Recorded Confirmed ARIPiprazole [Abilify] 10 mg PO HS 07/07/19 07/07/19 Aspirin/Acetaminophen/Caffeine 2 tab PO DAILY PRN 07/07/19 07/07/19 [Excedrin Migraine Caplet] Biotin [Biotin Disolve] 5,000 mcg PO HS 07/07/19 07/07/19 Cholecalciferol [Vitamin D3 (25 5,000 unit PO HS 07/07/19 07/07/19 Mcg = 1000 Iu)] DULoxetine HCL [Cymbalta] 60 mg PO HS 07/07/19 07/07/19 Dextroamphetamine/Amphetamine 30 mg PO QAM 07/07/19 07/07/19 [Adderall Xr] Dextroamphetamine/Amphetamine 10 mg PO DAILY@1300 07/07/19 07/07/19 [Adderall] QUEtiapine [SEROquel] 200 mg PO HS 07/07/19 07/07/19 clonazePAM [KlonoPIN] 0.5 mg PO HS 07/07/19 07/07/19 hydrOXYzine HCL [Atarax] 25 mg PO HS PRN 07/07/19 07/07/19 lamoTRIgine [LaMICtal] 50 mg PO HS 07/07/19 07/07/19 Previous Rx's Medication Instructions Recorded Magnesium Oxide [Mag-Ox] 400 mg PO BID #60 tablet 07/08/19 Riboflavin (Vitamin B2) 400 mg PO BID #60 tablet 07/08/19 [Riboflavin] Topiramate [Topamax] 25 mg PO BID #30 tab 07/08/19 Allergies Allergy/AdvReac Type Severity Reaction Status Date / Time ciprofloxacin [From Cipro] Allergy Swelling Verified 04/13/22 13:33 Review of Systems ROS Statement: Those systems with pertinent positive or pertinent negative responses have been documented in the HPI. ROS Other: All systems not noted in ROS Statement are negative. Past Medical History Additional Past Medical History / Comment(s): migraines, Covid History of Any Multi-Drug Resistant Organisms: None Reported Past Surgical History: Adenoidectomy, Section, Joint Replacement, Tonsillectomy Additional Past Surgical History / Comment(s): lt knee, brain cyst removed Past Anesthesia/Blood Transfusion Reactions: No Reported Reaction Past Psychological History: Anxiety, Depression Smoking Status: Never smoker Past Alcohol Use History: Occasional Past Drug Use History: Marijuana - Past Family History Father Family Medical History: Cancer Additional Family Medical History / Comment(s): geoblastoma General Exam Limitations: no limitations General appearance: alert, in no apparent distress Head exam: Present: atraumatic Eye exam: Present: normal appearance. Absent: scleral icterus, conjunctival injection Respiratory exam: Absent: respiratory distress, accessory muscle use Cardiovascular Exam: Present: regular rate GI/Abdominal exam: Present: soft Right Lower Leg exam: Present: tenderness (calf), Homans' sign. Absent: swelling, ecchymosis, deformity, dislocation, erythema, palpable cord Ankle exam: Absent: tenderness Foot/Toe exam: Absent: tenderness Neurovascular tendon exam: Present: no vascular compromise. Absent: pulse deficit, abnormal cap refill, extremity cold to touch, pallor, foot drop Left Knee exam: Present: full ROM, swelling (chronic s/p knee replacement). Absent: tenderness, ecchymosis Neurovascular tendon exam: Present: no vascular compromise. Absent: abnormal cap refill, extremity cold to touch, pallor, foot drop Neurological exam: Present: alert, oriented X3 Psychiatric exam: Present: normal affect, normal mood Skin exam: Present: warm, dry, normal color. Absent: cyanosis, diaphoretic, petechiae, pallor Course Vital Signs 04/13/22 13:31 Pulse Rate 98 Respiratory 18 Rate Blood Pressure 146/87 O2 Sat by Pulse 97 Oximetry Medical Decision Making - Medical Decision Making Patient has no recent trauma, no history of DVT, no control pills, does not smoke, no other risk factors for DVT. Was offered pain medication and declined at this time. There is no evidence of swelling, pedal pulses are present, she has full range of motion. Wells score low risk. Patient states her daughter is an orthopedic PA and is concerned for DVT therefore ultrasound was ordered. Ultrasound is negative for DVT Patient's symptoms are likely residual from overnight cramping and muscle spasm. She was directed to increase her fluid intake, use heat and nonsteroidal anti- inflammatories for pain. She is agreeable to this plan of care. Case discussed with Dr. Monteiro Disposition Clinical Impression: Muscle spasm Disposition: HOME SELF-CARE Condition: Good Instructions (If sedation given, give patient instructions): Muscle Spasm (ED) Additional Instructions: Four any recurring muscle cramps, you can try massage, Epson salts, heating pad or [id number] medication like Motrin. Increase your fluid intake. Return to the emergency room with any new or concerning symptoms. Is patient prescribed a controlled substance at d/c from ED?: No Referrals: Nonstaff,Physician [Primary Care Provider] - 1-2 days Time of Disposition: 15:07
--- NOTE | 2022-04-13 14:45 | US ---
EXAMINATION TYPE: US venous doppler duplex LE RT DATE OF EXAM: 04/13/2022 1:51 PM COMPARISON: NONE CLINICAL HISTORY: pain r/o dvt. SIDE PERFORMED: Right TECHNIQUE: The lower extremity deep venous system is examined utilizing real time linear array sonog chantal with graded compression, doppler sonography and color-flow sonography. VESSELS IMAGED: Common Femoral Vein Deep Femoral Vein Greater Saphenous Vein * Femoral Vein Popliteal Vein Small Saphenous Vein * Proximal Calf Veins (* superficial vessels) Right Leg: Negative for DVT IMPRESSION: 1. Right lower extremity ultrasound negative for deep venous thrombosis.
== END 2022-04-13 15:36 | disposition home or self-care (01) ==
LOC: EC 13:28
DX: M62.831 Muscle spasm of calf (principal); Z88.1 Allergy status to other antibiotic agents
CPT/HCPCS: 99283

== ENCOUNTER 2022-05-10 12:30 | Emergency (ER) | payer BC ==
[2022-05-10] MEDS ORDERED: FAMOTIDINE 20 MG/2 ML VIAL IV STA (12:58)
[2022-05-10] MEDS ORDERED: diphenhydrAMINE 50 MG/ML 1 ML VIAL IVP STA ×2 (12:58→14:23)
[2022-05-10] MEDS ORDERED: methylPREDNISolone SOD SUCCI 125 MG/2 ML VIAL IV STA (12:58)
--- NOTE | 2022-05-10 13:01 | ED ---
General Adult HPI - General Chief complaint: Allergic Reaction Stated complaint: allergic reaction Time Seen by Provider: 05/10/22 12:45 Source: patient, RN notes reviewed Mode of arrival: ambulatory Limitations: no limitations - History of Present Illness Initial comments: Patient is a pleasant 47-year-old female presenting to the emergency department with concern for ALLERGIC reaction. Patient was near shellfish that was being cut. Patient feels there is some swelling of the ears and eyes and maybe a little bit of throat. Patient also has rash on her chest that is itchy. Patient does have history of serious previous similar reaction. - Related Data Home Medications Medication Instructions Recorded Confirmed ARIPiprazole [Abilify] 10 mg PO HS 07/07/19 07/07/19 Aspirin/Acetaminophen/Caffeine 2 tab PO DAILY PRN 07/07/19 07/07/19 [Excedrin Migraine Caplet] Biotin [Biotin Disolve] 5,000 mcg PO HS 07/07/19 07/07/19 Cholecalciferol [Vitamin D3 (25 5,000 unit PO HS 07/07/19 07/07/19 Mcg = 1000 Iu)] DULoxetine HCL [Cymbalta] 60 mg PO HS 07/07/19 07/07/19 Dextroamphetamine/Amphetamine 30 mg PO QAM 07/07/19 07/07/19 [Adderall Xr] Dextroamphetamine/Amphetamine 10 mg PO DAILY@1300 07/07/19 07/07/19 [Adderall] QUEtiapine [SEROquel] 200 mg PO HS 07/07/19 07/07/19 clonazePAM [KlonoPIN] 0.5 mg PO HS 07/07/19 07/07/19 hydrOXYzine HCL [Atarax] 25 mg PO HS PRN 07/07/19 07/07/19 lamoTRIgine [LaMICtal] 50 mg PO HS 07/07/19 07/07/19 Previous Rx's Medication Instructions Recorded Magnesium Oxide [Mag-Ox] 400 mg PO BID #60 tablet 07/08/19 Riboflavin (Vitamin B2) 400 mg PO BID #60 tablet 07/08/19 [Riboflavin] Topiramate [Topamax] 25 mg PO BID #30 tab 07/08/19 hydrOXYzine HCL [Atarax] 50 mg PO Q6H PRN #20 tablet 05/10/22 predniSONE 50 mg PO DAILY #5 tab 05/10/22 Allergies Allergy/AdvReac Type Severity Reaction Status Date / Time ciprofloxacin [From Cipro] Allergy Swelling Verified 04/13/22 13:33 shellfish derived [Shellfish] AdvReac Severe Anaphylaxis Verified 05/10/22 12:39 Review of Systems ROS Statement: Those systems with pertinent positive or pertinent negative responses have been documented in the HPI. ROS Other: All systems not noted in ROS Statement are negative. Constitutional: Denies: fever Eyes: Denies: eye pain ENT: Reports: as per HPI Respiratory: Reports: as per HPI Cardiovascular: Denies: chest pain Endocrine: Denies: fatigue Gastrointestinal: Denies: abdominal pain Genitourinary: Denies: dysuria Musculoskeletal: Denies: back pain Skin: Denies: rash Neurological: Denies: weakness Past Medical History Additional Past Medical History / Comment(s): migraines, Covid History of Any Multi-Drug Resistant Organisms: None Reported Past Surgical History: Adenoidectomy, Section, Joint Replacement, Tonsillectomy Additional Past Surgical History / Comment(s): lt knee, brain cyst removed Past Anesthesia/Blood Transfusion Reactions: No Reported Reaction Past Psychological History: Anxiety, Depression Smoking Status: Never smoker Past Alcohol Use History: Occasional Past Drug Use History: Marijuana - Past Family History Father Family Medical History: Cancer Additional Family Medical History / Comment(s): geoblastoma General Exam Limitations: no limitations General appearance: alert, in no apparent distress Head exam: Present: normocephalic Eye exam: Present: normal appearance, PERRL, EOMI ENT exam: Present: other (Trace edema of the uvula) Neck exam: Present: normal inspection Respiratory exam: Present: normal lung sounds bilaterally. Absent: respiratory distress, wheezes Cardiovascular Exam: Present: regular rate, normal rhythm GI/Abdominal exam: Present: soft. Absent: tenderness Extremities exam: Present: normal inspection Neurological exam: Present: alert Psychiatric exam: Present: normal affect, normal mood Skin exam: Present: urticaria (Upper chest) Course Vital Signs 05/10/22 12:34 Temperature 97.6 F Pulse Rate 86 Respiratory 16 Rate Blood Pressure 184/101 O2 Sat by Pulse 99 Oximetry Medical Decision Making - Medical Decision Making Patient reevaluated and improved. Patient still has some itching. Disposition Clinical Impression: Urticaria Disposition: HOME SELF-CARE Condition: Stable Instructions (If sedation given, give patient instructions): Urticaria (ED) Additional Instructions: Please do follow-up with primary care physician in the next couple days for recheck. Prescription sent to pharmacy. Return for difficulty in breathing, swelling, worsening symptoms or any other concerns. Prescriptions: hydrOXYzine HCL [Atarax] 50 mg PO Q6H PRN #20 tablet PRN Reason: Itching predniSONE 50 mg PO DAILY #5 tab Is patient prescribed a controlled substance at d/c from ED?: No Referrals: Eliseo Morris MD [Primary Care Provider] - 1-2 days Time of Disposition: 14:24
[2022-05-10 15:04] VITALS: BP 122/74; PULSE 82; RESP 18; TEMP 98.2
== END 2022-05-10 15:06 | disposition home or self-care (01) ==
LOC: EC 12:30
DX: L50.0 Allergic urticaria (principal); T78.1XXA Other adverse food reactions, not elsewhere classified, initial encounter; Z88.1 Allergy status to other antibiotic agents; Z91.013 Allergy to seafood; Z79.82 Long term (current) use of aspirin
CPT/HCPCS: 99283; 96374; 96375; 96376; J1200; J2930